=== PATIENT | female | born 1995 | race Caucasian/White ===

== ENCOUNTER 2016-10-05 21:59 | Emergency (ER) | payer MEDICAID ==
[2016-10-05] MEDS ORDERED: hydrOXYzine 25 MG TAB ONE (22:58)
[2016-10-05] MEDS ORDERED: METHYLPRED SOD SUCC 125 MG/2 ML VIAL ONE (22:58)
== END 2016-10-05 23:31 | disposition home or self-care (01) ==
LOC: ER 21:59
DX: R21 Rash and other nonspecific skin eruption (principal); Z79.899 Other long term (current) drug therapy; F17.210 Nicotine dependence, cigarettes, uncomplicated
CPT/HCPCS: 96372